=== PATIENT | male | born 1965 | race Caucasian/White ===

== ENCOUNTER → 2018-12-11 | Outpatient (CLI) | payer OTHER | LOC: COL.VAS 13:36 | DX: R10.31 Right lower quadrant pain (principal); Z95.828 Presence of other vascular implants and grafts ==

== ENCOUNTER 2020-02-22 07:03 | Day surgery (SDC) | payer OTHER ==
[2020-02-22] VITALS (7 sets, daily range): BP systolic 100–159; BP diastolic 53–86; PULSE 66–81; TEMP 97–97.4
[~2020-02-22] VITALS: Ht 182.9 cm; Wt 78.9 kg
[2020-02-22] MEDS ORDERED: ASPIRIN 81M81 MG/TA2 PO (09:40)
[2020-02-22] MEDS ORDERED: ZOLOFT 100MG100 MG PO (09:41)
[2020-02-22] MEDS ORDERED: PLETAL 100MG T100 MG PO (09:41)
[2020-02-22] MEDS ORDERED: PLAVIX 75MG TAB75 MG PO (09:42)
[2020-02-22] MEDS ORDERED: NEURONTIN300 MG/CAP PO (09:43)
[2020-02-22] MEDS ORDERED: EPA FISH OIL1 SGL PO (09:43)
[2020-02-22] MEDS ORDERED: FLOMAX 0.40.4 MG/CAP PO (09:44)
[2020-02-22] MEDS ORDERED: 00186-0370-20 IH (09:46)
[2020-02-22] MEDS ORDERED: RT SPIRIVA18 MCG IH (09:47)
[2020-02-22] MEDS ORDERED: PROVENTIL0.09 MG/A1 IH (09:48)
[2020-02-22] MEDS ORDERED: DESYREL 50MG50 MG PO (09:58)
[2020-02-22] MEDS ORDERED: REMERON 15M15 MG/TA1 PO (09:58)
[2020-02-22] MEDS ORDERED: LIPITOR 80MG80 MG PO (09:59)
--- NOTE | 2020-02-22 12:25 | NUR ---
Patient returns to room 3 per cart from PACU and is awake and alert. Temp 97.3. Room air sats 98%. IV fluids infusing and siderails up x2. Call light in reach. Assisted up to the bathroom and is unable to void and returns to room. States did pass some blood.
--- NOTE | 2020-02-22 12:40 | NUR ---
Eating toast and drinking juice. Room air sats 98%. Has been drinking water.
--- NOTE | 2020-02-22 12:55 | NUR ---
Resting and denies need for pain medication or nausea.
--- NOTE | 2020-02-22 13:10 | NUR ---
Again up to the bathroom and attempts to void. Continues to drink water and juice.
--- NOTE | 2020-02-22 13:39 | NUR ---
Percocet 5mg one tab given for lower abdominal pain.
--- NOTE | 2020-02-22 13:45 | NUR ---
Given Flomax. States has not been able to urinate. Just passes drops of blood. Bladder scan done with 219ml showing.
--- NOTE | 2020-02-22 14:30 | NUR ---
Resting and drinking water and coffee. States that he is feeling better.
[2020-02-22] MEDS ORDERED: NORCO 325 MG-51 TAB PO (14:48)
--- NOTE | 2020-02-22 15:30 | NUR ---
Voids pink tinged urine. Returns to room and IV discontinued. States that his bladder feels empty. Has done well forcing fluids.
--- NOTE | 2020-02-22 15:40 | NUR ---
Dismissal instructions given and voices understanding of these. Provided script for [place]. Reinforced the importance of forcing fluids to help clear urine.
--- NOTE | 2020-02-22 15:53 | NUR ---
Patient dismissed to home driven by son and taken to the front door per wheelchair and assisted into car by this RN with dismissal instructions in hand.
== END 2020-02-22 15:53 | disposition home or self-care (01) ==
LOC: SDCO 07:03
DX: N20.1 Calculus of ureter (principal); Z87.891 Personal history of nicotine dependence; J44.9 Chronic obstructive pulmonary disease, unspecified; Z79.01 Long term (current) use of anticoagulants; Z79.899 Other long term (current) drug therapy; Z79.82 Long term (current) use of aspirin; F32.9 Major depressive disorder, single episode, unspecified; N52.9 Male erectile dysfunction, unspecified; E78.2 Mixed hyperlipidemia; I99.9 Unspecified disorder of circulatory system
CPT/HCPCS: C1769; C2617; J0690; J1100; J2405; J2704; J3010; J7120; Q9967